=== PATIENT | male | born 1975 | race Caucasian/White ===

== ENCOUNTER 2017-03-23 15:03 | Emergency (ER) | payer BC ==
[~2017-03-23] VITALS: Ht 182.9 cm; Wt 91.9 kg
[2017-03-23 15:38] VITALS: TEMP 36.6; Ht 182.9 cm; Wt 91.9 kg
[2017-03-23] MEDS ORDERED: CIPROFLOXACIN HCL 0.3% OP SOLN 2.5 ML BTL OP ONE (17:00)
[2017-03-23 17:05] VITALS: BP 101/60; PULSE 55; O2SAT 98
--- NOTE | 2017-03-23 23:13 | EMERGENCY ROOM VISIT NOTE ---
ED Visit Note First contact with patient: 16:37 Chief Complaint: Left eye irritation. History of Present Illness: Mr. Odell is a 41-year-old white male who ambulates into the ED accompanied by female friend complaining of left eye light sensitivity and tearing. Patient reports 3 days ago he noted some mild tearing of his left eye while he was at work. He denies any injury at that time that he wear safety glasses at work. 2 days ago he reports he noted mild light sensitivity that has gradually increased in intensity. He was seen at a urgent care center in his community and was told he could have a laceration or puncture wound to the left eye. Currently patient is complaining of light sensitivity and tearing of the left eye. He denies any pain of the left eye. He denies any vision changes of the left eye. He has not identified any aggravating or alleviating factors related to the symptoms. He has not taken any medications for these symptoms prior to arrival at the hospital. He denies any associated previous significant eye diseases/injuries, contact use, headaches, floaters, flashing lights, nausea, vomiting. Review of Systems: As noted above in history of present illness. Past Medical History: Kidney stones, depression. Current Medications: Patient denies. Allergies to Medications: Patient denies. Social History: Patient is currently employed; he feels safe in his home environment; he admits to tobacco use and denies alcohol use. Physical Examination: Vital Signs: yudi, Date Time Temp Pulse Resp B/P (MAP) Pulse Ox O2 Delivery O2 Flow Rate FiO2 03/23/17 17:05 55 18 101/60 98 03/23/17 15:38 36.6 63 17 108/68 99 Room Air GENERAL: 41-year-old male in mild distress due to symptoms, nontoxic-appearing, afebrile and hemodynamically stable. NEUROLOGICAL: Awake, alert and oriented to person, place and time. Answering questions appropriately and following commands. SKIN: Warm, dry and pink. No soft tissue eruptions or trauma noted. HEENT: Atraumatic and normocephalic. PERRLA. EOMI without nystagmus. Visual acuity: Right 20/20 without correction, Left 20/40 without correction. No foreign bodies noted under the eyelids are embedded in the cornea. Sclera injected and conjunctiva pink with clear like tear drainage. Anterior chamber is clear. On slit lamp examination with staining patient has a very small round uptake of the dye at the 7 o'clock position. I did not note any foreign bodies. This wound did not appear open and there was no drainage of humor. ED Course: Patient is assessed as noted above. Patient's medication list was reviewed. Alcaine was used to anesthetize the eye; should be noted that the Alcaine decreased his light sensitivity and his tearing for examination. did inform me that he was placed on her throw my some ointment for his eyes but did not want ointments and requested eyedrops. 2 drops of Ciloxan ophthalmic solution was placed in his left eye and he was sent home with the bottle. Patient was educated about today's findings and instructed on his treatment plan ; he verbalizes understanding and agreement with this plan. Clinical Impression: Left corneal abrasion. Disposition: Patient discharged home in stable condition; prior to departure patient subjectively reported he was feeling better with less light sensitivity. Plan: Patient was encouraged use 2 drops of Ciloxan in his left eye 4 hours while awake for 5 days. Patient was encouraged use ibuprofen or acetaminophen as needed for pain. Patient is encouraged use sunglasses for light sensitivity. Patient is encouraged to follow-up with personal multiple drum sander or return to the ED for recheck in 36-48 hours. Patient was encouraged return ED sooner for worsening/uncontrolled pain, visual changes, fevers, vomiting, headaches or any new/concerning symptoms.
== END 2017-03-23 17:06 | disposition home or self-care (01) ==
LOC: C.EDB 15:06 → C.EDD 17:06
DX: S05.02XA Injury of conjunctiva and corneal abrasion without foreign body, left eye, initial encounter (principal); X58.XXXA Exposure to other specified factors, initial encounter; F32.9 Major depressive disorder, single episode, unspecified; F17.200 Nicotine dependence, unspecified, uncomplicated; Z87.442 Personal history of urinary calculi